=== PATIENT | male | born 1965 | race Caucasian/White ===

== ENCOUNTER 2016-07-24 11:40 | Day surgery (SDC) | payer OTHER ==
[~2016-07-24] VITALS: Ht 200.7 cm; Wt 118.8 kg
[~2016-07-24 11:40] MED LIST: ALBU18HF INH; CYCL5TAB PO; IBUP800T28 PO; LORA10CA PO; Lactated Ringer's 1,000 ML IV ONE; MELO7.5O PO; OMEP20CA11 PO
[2016-07-24] MEDS ORDERED: Propofol 10,000 mCg/mL 20 mL Inj ONE (11:41)
[2016-07-24] MEDS ORDERED: fentaNYL-PF 50 mCg/mL 2 mL Inj ONE (11:41)
[2016-07-24 11:52] VITALS: BP 155/101; PULSE 79; RESP 16; O2SAT 97
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
[2016-07-24 12:44] VITALS: BP 136/97; PULSE 82; RESP 16; O2SAT 94
[2016-07-24 12:53] VITALS: BP 153/91; PULSE 82; RESP 16; O2SAT 98
[2016-07-24 13:04] VITALS: BP 159/94; PULSE 83; RESP 16; O2SAT 100
--- NOTE | 2016-07-24 13:38 | PCM.ANEP1 ---
Post Anesthesia PACU Phase 1 Assessment Vital Signs Vital Signs Date Time Temp Pulse Resp B/P Pulse Ox O2 Delivery O2 Flow Rate FiO2 07/24/16 13:04 83 16 159/94 100 Room Air 07/24/16 12:53 82 16 153/91 98 Room Air 07/24/16 12:44 82 16 136/97 94 Room Air 07/24/16 11:52 36.3 79 16 155/101 97 Room Air Anesthetic Administered: MAC Level of Alertness: Awake, talking Pain: No Nausea or Vomiting: No CV Function & Hydration Stable: Yes Airway Device: Lungs: Clear to Auscultation PACU Phase 2 Assessment Patient Instructions Provided: N/A Pankaj Alexander MD Jul 24, 2016 13:38
--- NOTE | 2016-07-24 13:44 | ENDO ---
[address] [address] ENDOSCOPY PROCEDURE PATIENT: CHIKI TINSLEY : 1965 MR#: [id number] ADMIT: 07/24/2016 JOB ID: [id number] DATE: 07/24/2016 TYPE OF OPERATION: Colonoscopy with biopsy. PREOPERATIVE DIAGNOSIS(ES): Rectal bleeding. POSTOPERATIVE DIAGNOSIS(ES): 1. Mild sigmoid diverticulosis. 2. There were two polyps measuring 2 mm in size each, one in the sigmoid colon and the other one in the descending colon, status post biopsy. ANESTHESIA: Monitored anesthesia care. COMPLICATIONS: None. BLOOD LOSS: Minimal. DESCRIPTION OF PROCEDURE: After risks and benefits were explained to the patient, informed consent was obtained. After anesthesia administered, a colonoscope was then inserted from the rectum to cecum. Mucosa carefully examined. Prep of the patient was excellent. After procedure was done, the scope withdrawn and procedure terminated. FINDINGS: Upon inspection of the anus, no masses, hemorrhoids, ulcers, fissures that were seen. Throughout the entire examination, there is mild sigmoid diverticulosis. There was also a 2 mm sigmoid polyp, 2 mm descending colon polyp, both removed by cold biopsy forceps. Retroflexion was normal. IMPRESSIONS: 1. Mild sigmoid diverticulosis. 2. There were two 2 mm sigmoid colon and descending colon polyps removed by cold biopsy forceps. RECOMMENDATION: 1. Await pathology results. 2. Repeat colonoscopy in five years given history of tubular adenoma.
--- NOTE | 2016-07-26 15:40 | PATH ---
SURGICAL PATHOLOGY Attending Physician:Dalton Johnson MD CASE STATUS: Signed Out PATIENT NAME: CHIKI TINSLEY PID: [id number] : 1965 DATE COLLECTED:07/24/2016 00:00 SPECIMEN: 1: Colon, Polyp 2: Colon, Polyp CLINICAL HISTORY: 1. DESCENDING POLYP 2. SIGMOID POLYP FINAL DIAGNOSIS: 1.DESCENDING COLON POLYP: TUBULAR ADENOMA. 2.SIGMOID COLON POLYP: POLYPOID-SHAPED FRAGMENT OF COLON MUCOSA CONSISTENT WITH MUCOSAL POLYPOID REDUNDANCY. Negative for evidence of neoplasm and/or hyperplasia on multiple histologic sections. ICD10 D12.4 GROSS DESCRIPTION: The specimen is received in two formalin filled containers labeled with the patient's name. 1). The specimen is sublabeled "descending polyp" and consists of a 0.3 x 0.3 x 0.3 CM portion of tissue which is entirely submitted in cassette 1A. 2). The specimen is sublabeled "sigmoid polyp" and consists of a 0.3 x 0.3 x 0.2 CM portion of tissue which is entirely submitted in cassette 2A. 07/25/2016 [facility] MICRO DESCRIPTION: See diagnosis. ICD-9 CODES: CPT CODES: 1: 48473 2: 80141 Electronically Signed Out Christ Stephens MD [facility] [address], [place] [address] Technical component performed at [facility], [facility] [address], [place], [address]
== END 2016-07-24 23:59 | disposition home or self-care (01) ==
LOC: END 11:40
PROVIDERS: ATTEND Internal Medicine Gastroenterology
DX: D12.4 Benign neoplasm of descending colon (principal); K62.5 Hemorrhage of anus and rectum; R14.0 Abdominal distension (gaseous); R63.4 Abnormal weight loss; I10 Essential (primary) hypertension; K22.70 Barrett's esophagus without dysplasia; K21.9 Gastro-esophageal reflux disease without esophagitis; J45.909 Unspecified asthma, uncomplicated; F12.90 Cannabis use, unspecified, uncomplicated; F10.20 Alcohol dependence, uncomplicated; F17.210 Nicotine dependence, cigarettes, uncomplicated; Z68.30 Body mass index [BMI] 30.0-30.9, adult; Z86.010 Personal history of colon polyps; K57.30 Diverticulosis of large intestine without perforation or abscess without bleeding
CPT/HCPCS: 45380; 88305; J3010; J7120